=== PATIENT | male | born 1940 | race Caucasian/White ===

== ENCOUNTER 2016-09-21 17:18 | Inpatient (IN) | payer OTHER, MEDICARE ==
[~2016-09-21] VITALS: Ht 170.2 cm; Wt 85.6 kg
[~2016-09-21 17:18] MED LIST: ASPIR 8181 MG PO; AUGMENTIN500 MG PO; B COMPLETE1 EACH PO; CALCIUM 500 MG1 EACH PO; CYCLOBENZAPRINE10 MG PO; FOSAMAX70 MG PO; HYDROCODON-ACE1 EAC7 PO; MULTI-DAY VITA1 EACH PO; OMEPRAZOLE40 M1 PO; PREVACID30 MG PO; SYNTHROID100 MCG PO; SYNTHROID125 MCG PO; SYNTHROID25 MCG PO; TESTONE CI200 MG/1 M IM; [UNRECOGNIZED DRUG - OTHER] PO
[2016-09-21 19:23] LABS: MCH 30.6 PG (29.0-34.0); MCHC 33.6 G/DL (30.0-36.0); MCV 90.9 FL (86-99); MEAN PLAT.VOLUME 9.3 uM^3 (9.0-12.4); PLATELET COUNT 330 K/uL (156-360); RBC DIS.WIDTH-CV 16.8 % (11.8-14.6); RBC DIS.WIDTH-SD 54.7 % (39-53); RED BLOOD COUNT 3.96 M/uL (4.00-5.50); WHITE BLOOD COUNT 14.1 K/uL (4.1-10.2)
[2016-09-21 19:30] LABS: CHLORIDE 107 mEq/L (99-109); POTASSIUM 4.2 mEq/L (3.7-5.4); SODIUM 141 mEq/L (136-147)
[2016-09-21 19:32] LABS: GLUCOSE 99 mg/dL (70-99)
[2016-09-21 19:33] LABS: ANION GAP 10 MEQ/L (2-14)
[2016-09-21 19:34] LABS: TOTAL BILIRUBIN 2.2 mg/dL (0.0-1.0)
[2016-09-21 19:36] LABS: ALKALINE PHOSPHATASE 79 IU/L (3-129); GFR ESTIMATE (CALCULATED) > 59 mL/min/
[2016-09-21 19:37] LABS: UREA NITROGEN (BUN) 25 mg/dL (9-23)
[2016-09-21 23:59] LABS: ADD MIUA? NO; BILIRUBIN NEGATIVE; BLOOD NEGATIVE; COLOR YELLOW ((YELLOW)); GLUCOSE (STRIP) NEGATIVE; KETONES TRACE; LEUKOCYTES NEGATIVE; NITRITE NEGATIVE; PH, URINE 5.5 (5-8); PROTEIN (STRIP) TRACE; UCUL ADDED? NO; UROBILINOGEN 0.2 MG/DL (0.2-1.0)
[2016-09-22 00:48] LABS: TROP-I INTERPRETATION NEGATIVE; TROPONIN-I < 0.01 ng/mL (0.0-0.30)
[2016-09-22 01:31] VITALS: BP 124/68
[2016-09-22 04:47] LABS: HEMATOCRIT 35.7 % (38.0-50.0); MCH 30.8 PG (29.0-34.0); MCHC 33.6 G/DL (30.0-36.0); MCV 91.5 FL (86-99); MEAN PLAT.VOLUME 8.8 uM^3 (9.0-12.4); PLATELET COUNT 323 K/uL (156-360); RBC DIS.WIDTH-CV 16.7 % (11.8-14.6); RBC DIS.WIDTH-SD 54.5 % (39-53); WHITE BLOOD COUNT 11.7 K/uL (4.1-10.2)
[2016-09-22 04:56] LABS: CHLORIDE 109 mEq/L (99-109); POTASSIUM 3.7 mEq/L (3.7-5.4); SODIUM 140 mEq/L (136-147)
[2016-09-22 04:57] LABS: GLUCOSE 100 mg/dL (70-99)
[2016-09-22 04:59] LABS: ANION GAP 11 MEQ/L (2-14)
[2016-09-22 05:01] LABS: GFR ESTIMATE (CALCULATED) > 59 mL/min/
[2016-09-22 05:02] LABS: UREA NITROGEN (BUN) 23 mg/dL (9-23)
[2016-09-22 05:07] LABS: TROP-I INTERPRETATION NEGATIVE; TROPONIN-I < 0.01 ng/mL (0.0-0.30)
[2016-09-22 06:17] LABS: ANISOCYTOSIS 2+; BASOPHIL COUNT 0.1 K/uL (0-0.1); EOSINOPHIL (%) 2.1 % (0-5); EOSINOPHIL COUNT 0.2 K/uL (0-0.3); IMMATURE GRANULOCYTE (%) 0.3 % (0.0-0.7); IMMATURE GRANULOCYTE COUNT 0.3 K/uL; LYMPHOCYTE COUNT 2.3 K/uL (1.0-2.8); MACROCYTES 1+; MONOCYTE (%) 12.6 % (3-12); MONOCYTE COUNT 1.5 K/uL (0-0.8); NEUTROPHIL (%) 64.9 % (45-76); NEUTROPHIL COUNT 7.6 K/uL (1.8-6.4); PLAT.SUFFICIENCY ADEQUATE; SPHEROCYTES 1+
[2016-09-22 06:54] LABS: ERTH.SED.RATE 96 MM/HR (0-20)
[2016-09-22 11:52] VITALS: BP 133/67
[2016-09-22 12:40] LABS: TROP-I INTERPRETATION NEGATIVE; TROPONIN-I < 0.01 ng/mL (0.0-0.30)
[2016-09-22 15:36] VITALS: BP 132/69
[2016-09-22 20:18] VITALS: BP 124/59
[2016-09-23 00:21] VITALS: BP 128/60
[2016-09-23 06:43] LABS: HEMATOCRIT 35.5 % (38.0-50.0); MCH 30.5 PG (29.0-34.0); MCHC 33.2 G/DL (30.0-36.0); MCV 91.7 FL (86-99); MEAN PLAT.VOLUME 9.5 uM^3 (9.0-12.4); PLATELET COUNT 344 K/uL (156-360); RBC DIS.WIDTH-CV 16.6 % (11.8-14.6); RBC DIS.WIDTH-SD 54.5 % (39-53); RED BLOOD COUNT 3.87 M/uL (4.00-5.50); WHITE BLOOD COUNT 9.9 K/uL (4.1-10.2)
[2016-09-23 07:33] LABS: ANION GAP 12 MEQ/L (2-14); CHLORIDE 106 MEQ/L (99-109); GFR ESTIMATE (CALCULATED) > 59 mL/min/; GLUCOSE 83 mg/dL (70-99); POTASSIUM 4.1 MEQ/L (3.7-5.4); SAMPLE HEMOLYSIS CHECK 0; SAMPLE ICTERIC CHECK 0; SAMPLE LIPEMIA CHECK 0; SODIUM 144 MEQ/L (136-147); UREA NITROGEN (BUN) 22 mg/dL (9-23)
[2016-09-23 08:10] VITALS: BP 130/61
[2016-09-23 16:17] VITALS: BP 141/77
[2016-09-24 00:18] VITALS: BP 125/66
[2016-09-24 06:07] LABS: HEMATOCRIT 35.1 % (38.0-50.0); MCH 30.2 PG (29.0-34.0); MCHC 32.5 G/DL (30.0-36.0); MCV 93.1 FL (86-99); MEAN PLAT.VOLUME 9.4 uM^3 (9.0-12.4); PLATELET COUNT 362 K/uL (156-360); RBC DIS.WIDTH-CV 16.5 % (11.8-14.6); RBC DIS.WIDTH-SD 56.4 % (39-53); RED BLOOD COUNT 3.77 M/uL (4.00-5.50); WHITE BLOOD COUNT 10.4 K/uL (4.1-10.2)
[2016-09-24 06:32] LABS: ANION GAP 10 MEQ/L (2-14); CHLORIDE 107 MEQ/L (99-109); GFR ESTIMATE (CALCULATED) > 59 mL/min/; GLUCOSE 97 mg/dL (70-99); SAMPLE HEMOLYSIS CHECK 0; SAMPLE ICTERIC CHECK 0; SAMPLE LIPEMIA CHECK 0; SODIUM 144 MEQ/L (136-147); UREA NITROGEN (BUN) 18 mg/dL (9-23)
[2016-09-24 08:11] VITALS: BP 138/78
[2016-09-24 16:30] VITALS: BP 124/65
[2016-09-25 00:10] VITALS: BP 114/56
[2016-09-25 04:48] LABS: HEMATOCRIT 35.3 % (38.0-50.0); MCHC 32.6 G/DL (30.0-36.0); MCV 92.2 FL (86-99); PLATELET COUNT 405 K/uL (156-360); RBC DIS.WIDTH-CV 16.4 % (11.8-14.6); RBC DIS.WIDTH-SD 53.3 % (39-53); RED BLOOD COUNT 3.83 M/uL (4.00-5.50); WHITE BLOOD COUNT 9.6 K/uL (4.1-10.2)
[2016-09-25 04:59] LABS: CHLORIDE 110 mEq/L (99-109); POTASSIUM 4.1 mEq/L (3.7-5.4); SODIUM 142 mEq/L (136-147)
[2016-09-25 05:01] LABS: GLUCOSE 92 mg/dL (70-99)
[2016-09-25 05:02] LABS: ANION GAP 10 MEQ/L (2-14)
[2016-09-25 05:04] LABS: GFR ESTIMATE (CALCULATED) > 59 mL/min/
[2016-09-25 05:05] LABS: UREA NITROGEN (BUN) 17 mg/dL (9-23)
[2016-09-25 07:59] VITALS: BP 131/78
[2016-09-25 16:14] VITALS: BP 144/76
[2016-09-25 23:57] VITALS: BP 126/69
[2016-09-26 05:48] LABS: HEMATOCRIT 38.1 % (38.0-50.0); MCH 29.5 PG (29.0-34.0); MEAN PLAT.VOLUME 9.1 uM^3 (9.0-12.4); PLATELET COUNT 444 K/uL (156-360); RBC DIS.WIDTH-CV 16.1 % (11.8-14.6); RBC DIS.WIDTH-SD 54.5 % (39-53); RED BLOOD COUNT 4.14 M/uL (4.00-5.50); WHITE BLOOD COUNT 10.8 K/uL (4.1-10.2)
[2016-09-26 06:10] LABS: ANION GAP 8 MEQ/L (2-14); CHLORIDE 106 MEQ/L (99-109); GFR ESTIMATE (CALCULATED) > 59 mL/min/; GLUCOSE 97 mg/dL (70-99); SAMPLE HEMOLYSIS CHECK 0; SAMPLE ICTERIC CHECK 0; SAMPLE LIPEMIA CHECK 0; SODIUM 141 MEQ/L (136-147); UREA NITROGEN (BUN) 18 mg/dL (9-23)
[2016-09-26 07:51] VITALS: BP 125/70
[2016-09-26] MEDS ORDERED: AUGMENTIN875 MG PO (09:40)
== END 2016-09-26 10:45 | disposition home or self-care (01) | DRG 920 ==
LOC: EME 17:18 → 3EAST 22:53 → EDOF 22:53 → 3EAST 09-22 01:07
PROVIDERS: Hospitalist; Internal Medicine; Nurse Practitioner Family
DX: T85.79XA Infection and inflammatory reaction due to other internal prosthetic devices, implants and grafts, initial encounter (principal); L02.211 Cutaneous abscess of abdominal wall; I10 Essential (primary) hypertension; L03.311 Cellulitis of abdominal wall; E03.9 Hypothyroidism, unspecified; Z85.71 Personal history of Hodgkin lymphoma; G89.29 Other chronic pain; B95.61 Methicillin susceptible Staphylococcus aureus infection as the cause of diseases classified elsewhere
CPT/HCPCS: 71020; 74177; 74183; 80048; 80053; 81003; 84484; 85025; 85027; 85651; 87040; 87070; 87075; 87077; 87147; 87186; 87205; 93005; 99281; 99285; J0295; J1650; J2543; J3370; J7040; J7050

== ENCOUNTER 2016-11-10 07:54 | Inpatient (IN) | payer OTHER, MEDICARE ==
[~2016-11-10] VITALS: Ht 170.2 cm; Wt 85.2 kg
[~2016-11-10 07:54] MED LIST changes: +AUGMENTIN875 MG PO
[2016-11-10 08:27] LABS: HEMATOCRIT 42.9 % (38.0-50.0); MCH 30.1 PG (29.0-34.0); MCHC 32.9 G/DL (30.0-36.0); MCV 91.5 FL (86-99); PLATELET COUNT 396 K/uL (156-360); RBC DIS.WIDTH-CV 17.3 % (11.8-14.6); RBC DIS.WIDTH-SD 55.7 % (39-53); RED BLOOD COUNT 4.69 M/uL (4.00-5.50); WHITE BLOOD COUNT 9.1 K/uL (4.1-10.2)
[2016-11-10 08:32] LABS: EOSINOPHIL (%) 1.6 % (0-5); EOSINOPHIL COUNT 0.2 K/uL (0-0.3); IMMATURE GRANULOCYTE (%) 0.1 % (0.0-0.7); IMMATURE GRANULOCYTE COUNT 0.1 K/uL; LYMPHOCYTE COUNT 2.5 K/uL (1.0-2.8); MONOCYTE (%) 10.9 % (3-12); NEUTROPHIL COUNT 5.5 K/uL (1.8-6.4)
[2016-11-10 08:39] LABS: D-DIMER ELISA 1.19 mg/L FEU (< 0.57); INTER. NORMALIZED RATIO 1.1; PROTHROMBIN TIME 11.2 (9.2-11.2); PTT 29.2 (25-32)
[2016-11-10 08:41] LABS: CHLORIDE 110 mEq/L (99-109); POTASSIUM 4.1 mEq/L (3.7-5.4); SODIUM 145 mEq/L (136-147)
[2016-11-10 08:42] LABS: GLUCOSE 116 mg/dL (70-99)
[2016-11-10 08:44] LABS: ANION GAP 13 MEQ/L (2-14)
[2016-11-10 08:46] LABS: GFR ESTIMATE (CALCULATED) > 59 mL/min/
[2016-11-10 08:47] LABS: UREA NITROGEN (BUN) 20 mg/dL (9-23)
[2016-11-10 08:55] LABS: TROP-I INTERPRETATION INDETERMINATE; TROPONIN-I 0.53 ng/mL (0.0-0.30)
[2016-11-10] MEDS ORDERED: CARVEDILOL3.125 MG PO (11:57)
[2016-11-10 18:13] LABS: TROP-I INTERPRETATION INDETERMINATE
[2016-11-10 21:59] VITALS: BP 145/80
[2016-11-10 23:37] VITALS: BP 136/74
[2016-11-11 01:34] LABS: TROP-I INTERPRETATION POSITIVE; TROPONIN-I 0.63 ng/mL (0.0-0.30)
[2016-11-11 04:51] VITALS: BP 123/70
[2016-11-11 06:41] LABS: HEMATOCRIT 44.2 % (38.0-50.0); MCH 29.5 PG (29.0-34.0); MCHC 32.4 G/DL (30.0-36.0); MCV 91.1 FL (86-99); MEAN PLAT.VOLUME 9.4 uM^3 (9.0-12.4); PLATELET COUNT 397 K/uL (156-360); RBC DIS.WIDTH-CV 16.8 % (11.8-14.6); RBC DIS.WIDTH-SD 56.1 % (39-53); RED BLOOD COUNT 4.85 M/uL (4.00-5.50); WHITE BLOOD COUNT 9.6 K/uL (4.1-10.2)
[2016-11-11 07:02] LABS: ALKALINE PHOSPHATASE 82 IU/L (3-129); ANION GAP 12 MEQ/L (2-14); CHLORIDE 105 MEQ/L (99-109); GFR ESTIMATE (CALCULATED) > 59 mL/min/; GLUCOSE 103 mg/dL (70-99); POTASSIUM 3.6 MEQ/L (3.7-5.4); SAMPLE HEMOLYSIS CHECK 0; SAMPLE ICTERIC CHECK 1; SAMPLE LIPEMIA CHECK 0; SODIUM 144 MEQ/L (136-147); TOTAL BILIRUBIN 2.8 MG/DL (0.0-1.0); UREA NITROGEN (BUN) 19 mg/dL (9-23)
[2016-11-11 08:00] VITALS: BP 147/63
[2016-11-11 20:00] VITALS: BP 147/75
[2016-11-12] VITALS: BP 159/71
[2016-11-12 04:00] VITALS: BP 109/67
[2016-11-12 07:32] LABS: HEMATOCRIT 47.5 % (38.0-50.0); MCH 31.4 PG (29.0-34.0); MCHC 34.1 G/DL (30.0-36.0); MCV 92.1 FL (86-99); MEAN PLAT.VOLUME 9.7 uM^3 (9.0-12.4); PLATELET COUNT 397 K/uL (156-360); RBC DIS.WIDTH-CV 16.6 % (11.8-14.6); RBC DIS.WIDTH-SD 55.7 % (39-53); RED BLOOD COUNT 5.16 M/uL (4.00-5.50)
[2016-11-12 07:33] VITALS: BP 99/60
[2016-11-12 08:22] LABS: ALKALINE PHOSPHATASE 78 IU/L (3-129); ANION GAP 13 MEQ/L (2-14); CHLORIDE 105 MEQ/L (99-109); GFR ESTIMATE (CALCULATED) > 59 mL/min/; GLUCOSE 113 mg/dL (70-99); SAMPLE HEMOLYSIS CHECK 0; SAMPLE ICTERIC CHECK 0; SAMPLE LIPEMIA CHECK 0; SODIUM 144 MEQ/L (136-147); TOTAL BILIRUBIN 2.5 MG/DL (0.0-1.0); UREA NITROGEN (BUN) 19 mg/dL (9-23)
[2016-11-12 09:06] LABS: POTASSIUM 4.4 MEQ/L (3.7-5.4)
[2016-11-12 11:24] VITALS: BP 98/60
[2016-11-12] MEDS ORDERED: ASPIR-LOW81 MG PO (13:26)
[2016-11-12] MEDS ORDERED: FUROSEMIDE40 MG PO (13:26)
[2016-11-12] MEDS ORDERED: ENTRESTO 49 MG1 EACH PO (13:26)
== END 2016-11-12 14:45 | disposition home or self-care (01) | DRG 292 ==
LOC: EME 07:54 → 4EAST 11:42 → EDOF 11:42 → 4EAST 21:49
PROVIDERS: Emergency Medicine; Internal Medicine
PROC: 0CJY8ZZ Inspection of Mouth and Throat, Via Natural or Artificial Opening Endoscopic (ICD-10-PCS; principal; 2016-11-11)
DX: I50.21 Acute systolic (congestive) heart failure (principal); C81.90 Hodgkin lymphoma, unspecified, unspecified site; R13.10 Dysphagia, unspecified; E03.9 Hypothyroidism, unspecified; I10 Essential (primary) hypertension; I44.7 Left bundle-branch block, unspecified; K22.70 Barrett's esophagus without dysplasia; Z90.49 Acquired absence of other specified parts of digestive tract; I25.10 Atherosclerotic heart disease of native coronary artery without angina pectoris; Z87.891 Personal history of nicotine dependence
CPT/HCPCS: 71010; 71275; 74220; 80048; 80053; 83880; 84443; 84484; 85025; 85027; 85379; 85610; 85730; 93005; 93306; 94640; 94640 76; 94799; 99202; 99281; 99285; J1650; J1940